=== PATIENT | female | born 1970 | race Caucasian/White ===

== ENCOUNTER → 2019-04-28 07:51 | Outpatient (CLI) | payer OTHER, SELFPAY ==
--- NOTE | 2019-04-28 | DI.MRI.S_ITS ---
PROCEDURE: MR CERVICAL SPINE WO CON INDICATIONS: Paresthesia of skin TECHNIQUE: Noncontrast sagittal T1 spin echo and T2 fast spin echo, sagittal STIR, foraminal oblique sagittal T2 fast spin echo, and axial gradient echo or T2 fast spin echo through the cervical spine. Sagittal proton density images were also performed. COMPARISON: [facility], MR, MR HEAD/BRAIN WO/W CON, 04/28/2019, 8:36. FINDINGS: Image quality: Excellent. Alignment and Curvature: There is normal bony alignment. Bone Marrow: Marrow demonstrates normal overall signal. Spinal Cord: There are several T2 hyperintense white matter lesions seen. The most prominent of these can be seen on the left, centered at the C4 level. There is a faintly seen lesion seen on the left at the C6 level, as on series 5 image 28. An additional lesion can be faintly seen on the right at the T1 level. Visualized spinal cord has normal size. No cerebellar tonsillar herniation. Paraspinous Soft Tissues: No paravertebral masses. Prevertebral soft tissues are normal in thickness. C2-C3: Normal appearance. C3-C4: Normal appearance. C4-C5: Normal appearance. C5-C6: Normal appearance. C6-C7: Normal appearance. C7-T1: Normal appearance. IMPRESSION: Several T2 hyperintense white matter lesions are seen, which are consistent with multiple sclerosis. No significant degenerative change is seen. Dictated by: Davey Pillai M.D. on 04/28/2019 at 9:53 Approved by: Davey Pillai M.D. on 04/28/2019 at 9:57
--- NOTE | 2019-04-28 | DI.MRI.S_ITS ---
PROCEDURE: MR HEAD/BRAIN WO/W CON INDICATIONS: Paresthesia of skin TECHNIQUE: Noncontrast sagittal and axial FLAIR, axial and coronal T2 fast spin echo, axial VIBE, axial gradient echo, axial diffusion and ADC through the brain. After the administration of contrast, axial and coronal VIBE with fat saturation through the brain. COMPARISON: [facility], MR, MR CERVICAL SPINE WO CON, 04/28/2019, 8:13. (No prior brain MRI examinations are available for review at the time of this dictation.) FINDINGS: Image quality: Excellent. CSF spaces: Ventricles are normal in size and shape. Basal cisterns are patent. No extra-axial fluid collections. Brain: There are several areas of abnormal T2 hyperintense white matter within the periventricular and deep white matter. The juxtacortical white matter is also involved. Several of the periventricular lesions demonstrate a perpendicular orientation to the lateral ventricles. There is involvement of the corpus callosum seen. Mild involvement of the brigid can be seen, as on series 5 image 13. A cerebellar lesion can be seen, as on series 5 image 15. An additional potential right cerebellar lesion can be seen, as on series 7 image 15. The white matter lesions do not enhance. No intracranial bleeds or mass effects. Kaufman-white matter interface appears intact. No abnormal intracranial enhancement. Diffusion weighted images show no acute ischemic insults. Brainstem appears normal. Normal intravascular flow voids are present. Skull and face: Calvarial marrow signal is normal. Orbits appear normal. Sinuses: Sinuses and mastoids are clear. IMPRESSION: Multiple white matter lesions are seen, with an imaging appearance that is highly concerning for multiple sclerosis. No prior brain MRIs are available for review at the time of this dictation. If prior brain MRIs are presented for correlation, comparison will be made and an addendum issued to this report. No abnormal enhancement can be seen. No findings of acute or subacute infarction can be seen. Dictated by: Davey Pillai M.D. on 04/28/2019 at 9:49 Approved by: Davey Pillai M.D. on 04/28/2019 at 9:53
== END ==
PROVIDERS: PCP Physician Assistant; Visit Provider Physician Assistant
DX: R20.2 Paresthesia of skin (principal)
CPT/HCPCS: 70553; 72141

== ENCOUNTER → 2019-10-31 16:31 | Outpatient (CLI) | payer OTHER, SELFPAY ==
--- NOTE | 2019-10-31 16:36 | DI.MRI.S_ITS ---
PROCEDURE: MR THORACIC SPINE WO/W CON INDICATIONS: MULTIPLE SCLEROSIS TECHNIQUE: Noncontrast sagittal T1 spin echo and T2 fast spin echo, sagittal STIR, axial T1 and T2 fast spin echo through the thoracic spine. After the administration of contrast, axial and sagittal T1 spin echo with fat saturation through the thoracic spine. COMPARISON: None. FINDINGS: Image quality: Excellent. Alignment and curvature: There is normal bony alignment. Marrow: Marrow is of normal overall signal. No acute vertebral body compression fractures. Spinal cord: Visualized spinal cord is of normal signal and size, without abnormal enhancement. Paraspinous soft tissues: No paravertebral masses or abnormal enhancement. Miscellaneous: Central canal and foramina appear widely patent at all scanned levels. IMPRESSION: Through the low cervical and visualized thoracic spine extending into the upper lumbar spine no intrinsic lesion within the spinal cord is found. The contrast-enhanced portion of the study shows no evidence of cord inflammation. The imaging also shows no degenerative change impinging on the cord or nerve roots. Overall, normal for age. Dictated by: Carter Caraballo M.D. on 11/03/2019 at 8:24 Approved by: Carter Caraballo M.D. on 11/03/2019 at 8:29
== END ==
PROVIDERS: PCP Physician Assistant; Referring Provider Psychiatry & Neurology Neurology; Visit Provider Psychiatry & Neurology Neurology
DX: G35 Multiple sclerosis (principal)
CPT/HCPCS: 72157; A9579

== ENCOUNTER → 2020-06-22 12:41 | Outpatient (CLI) | payer OTHER, SELFPAY ==
--- NOTE | 2020-06-22 12:45 | DI.MRI.S_ITS ---
PROCEDURE: MR THORACIC SPINE WO/W CON INDICATIONS: MULTIPLE SCLEROSIS TECHNIQUE: Noncontrast sagittal T1 spin echo and T2 fast spin echo, sagittal STIR, post-Gadolinium axial T1 spin echo with fat saturation through the thoracic and lumbar spines, with additional T2 fast spin echo and post-contrast axial T1 spin echo with fat saturation sequences acquired through levels of suspected cord compression. COMPARISON: [facility], , MR THORACIC SPINE WO/W CON, 10/31/2019, 17:01. FINDINGS: Image quality: Excellent. Bones: Normal thoracic vertebral body height and alignment. No suspicious focal marrow signal abnormality or bone marrow edema. No abnormal enhancement of the osseous vertebral column. No spinal canal or neural foraminal stenosis. Spinal cord: Visualized spinal cord is normal in size and signal. There is no T2 hyperintense lesion to indicate a demyelinating plaque. No abnormal intradural enhancement. Normal position of the conus. Paraspinous soft tissues: No paravertebral masses. IMPRESSION: No evidence of demyelinating disease in the thoracic spine. No significant change from comparison study. Dictated by: Miky Agrawal M.D. on 06/22/2020 at 14:34 Approved by: Miky Agrawal M.D. on 06/22/2020 at 14:38
--- NOTE | 2020-06-22 12:45 | DI.MRI.S_ITS ---
PROCEDURE: MR CERVICAL SPINE WO/W CON INDICATIONS: MULTIPLE SCLEROSIS TECHNIQUE: Noncontrast sagittal T1 spin echo and T2 fast spin echo, sagittal STIR, sagittal PD fast spin echo, foraminal oblique sagittal T2 fast spin echo, axial gradient echo or T2 fast spin echo through the cervical spine. After the administration of contrast, sagittal and axial T1 spin echo with fat saturation through the cervical spine. COMPARISON: [facility], MR, MR CERVICAL SPINE WO CON, 04/28/2019, 8:13. [facility], MR, MR THORACIC SPINE WO/W CON, 06/22/2020, 12:57. [facility], MR, MR HEAD/BRAIN WO/W CON, 06/22/2020, 12:57. FINDINGS: Image quality: Excellent. Alignment and curvature: There is normal bony alignment. Marrow: Marrow demonstrates normal overall signal. Spinal cord: On the left at the C4 level, there is again seen a focal white matter lesion, as on series 6, image 22. An additional faintly seen white matter lesion can be seen on the left, which is centered at the C6-C7 level, as on series 6, image 31. These lesions are not significantly changed over time. No new lesions are seen. Visualized spinal cord is normal in size. No suspicious intramedullary enhancement. No cerebellar tonsillar herniation. Paraspinous soft tissues: No paravertebral masses or suspicious enhancement. C2-C3: Normal appearance. C3-C4: Normal appearance. C4-C5: Normal appearance. C5-C6: Normal appearance. C6-C7: Normal appearance. C7-T1: Normal appearance. IMPRESSION: Stable T2 hyperintense white matter lesions are seen, which are not significantly changed compared to the prior examination. There are consistent with the given clinical history of multiple sclerosis. No abnormal enhancement can be seen. No significant cervical spine degenerative change can be seen. Dictated by: Davey Pillai M.D. on 06/22/2020 at 14:38 Approved by: Davey Pillai M.D. on 06/22/2020 at 14:41
--- NOTE | 2020-06-22 12:45 | DI.MRI.S_ITS ---
PROCEDURE: MR HEAD/BRAIN WO/W CON INDICATIONS: MULTIPLE SCLEROSIS TECHNIQUE: Noncontrast sagittal and axial FLAIR, axial and coronal T2 fast spin echo, axial VIBE, axial gradient echo, axial diffusion and ADC through the brain. After the administration of contrast, axial and coronal VIBE with fat saturation through the brain. COMPARISON: [facility], , MR HEAD/BRAIN WO/W CON, 04/28/2019, 8:36. FINDINGS: Image quality: Excellent. CSF spaces: Ventricles are normal in size and shape. Basal cisterns are patent. No extra-axial fluid collections. Brain: No intracranial bleeds or mass effects. Kaufman-white matter interface appears intact. No suspicious white matter lesions. No abnormal intracranial enhancement. Diffusion weighted images show no acute ischemic insults. The pattern of periventricular and centripetally oriented corpus callosum deep white matter lesions is stable over time, and no new lesion is identified. Brainstem appears normal. Normal intravascular flow voids are present. Skull and face: Calvarial marrow signal is normal. Orbits appear normal. Sinuses: Sinuses and mastoids are clear. IMPRESSION: Stable appearing multifocal bilateral periventricular and centripetally oriented corpus callosum white matter lesions consistent with underlying multiple sclerosis but free of interval worsening, contrast enhancement, or mass effect. No change from 04/28/19 similar MRI. Dictated by: Carter Caraballo M.D. on 06/22/2020 at 14:35 Approved by: Carter Caraballo M.D. on 06/22/2020 at 14:43
== END ==
PROVIDERS: PCP General Practice; Referring Provider Psychiatry & Neurology Neurology; Visit Provider Psychiatry & Neurology Neurology
DX: G35 Multiple sclerosis (principal)
CPT/HCPCS: 70553; 72156; 72157; A9579

== ENCOUNTER → 2020-11-08 12:35 | Outpatient (CLI) | payer BC, OTHER, SELFPAY ==
--- NOTE | 2020-11-08 12:42 | DI.US.S_ITS ---
PROCEDURE: US RENAL COMPLETE INDICATIONS: NEUROGENIC BLADDER TECHNIQUE: Real-time scanning was performed of the kidneys and bladder, with image documentation. COMPARISON: None. FINDINGS: Kidneys: Kidneys are normal in size. Right kidney measures 11.6 cm long; left kidney measures 11.6 cm long. Right renal cortical thickness is 1.6 cm; left renal cortical thickness is 1.5 cm. Renal cortical echotexture is normal. No hydronephrosis or nephrolithiasis. No suspicious solid mass lesions. Bladder: Pre-void bladder volume is 697 mL. Post-void residual is 49 mL. Pre-void images demonstrate no intraluminal masses or stones. On pre-void images, bilateral ureteral jets are noted with color Doppler interrogation. (Of note, ureteral jets may not be detectable in up to 25% of cases due to insufficient differences in specific gravity between ureteral and bladder urine). Miscellaneous: No free pelvic fluid. IMPRESSION: 1. Normal appearing bilateral kidneys. 2. No bladder wall abnormality is seen. Small amount of postvoid residual. Dictated by: Jude Maria M.D. on 11/08/2020 at 13:54 Approved by: Jude Maria M.D. on 11/08/2020 at 13:55
== END ==
PROVIDERS: PCP General Practice; Referring Provider Urology; Visit Provider Urology
DX: N31.9 Neuromuscular dysfunction of bladder, unspecified (principal)
CPT/HCPCS: 76770

== ENCOUNTER → 2021-07-08 15:13 | Outpatient (CLI) | payer BC, OTHER, SELFPAY ==
--- NOTE | 2021-07-08 | DI.MRI.S_ITS ---
PROCEDURE: MR CERVICAL SPINE WO/W CON INDICATIONS: Multiple sclerosis TECHNIQUE: Noncontrast sagittal T1 spin echo and T2 fast spin echo, sagittal STIR, sagittal PD fast spin echo, foraminal oblique sagittal T2 fast spin echo, axial gradient echo or T2 fast spin echo through the cervical spine. After the administration of contrast, sagittal and axial T1 spin echo with fat saturation through the cervical spine. COMPARISON: [facility], MR, MR CERVICAL SPINE WO CON, 04/28/2019, 8:13. [facility], MR, MR CERVICAL SPINE WO/W CON, 06/22/2020, 12:57. [facility], MR, MR HEAD/BRAIN WO/W CON, 07/08/2021, 15:35. FINDINGS: Image quality: Diagnostic, with note made of motion artifact. Alignment and curvature: There is normal bony alignment. Marrow: Marrow demonstrates normal overall signal. Spinal cord: Spinal cord white matter lesions are seen, including on the left at the C4 level, as on series 4, image 22. The previously described lesion on the left at the C6-C7 level is not well seen on the current study. No new lesions are seen. No abnormal enhancement is seen. Visualized spinal cord is normal in size. No cerebellar tonsillar herniation. Paraspinous soft tissues: No paravertebral masses or suspicious enhancement. No significant cervical spine degenerative change can be seen. IMPRESSION: A stable cervical cord white matter lesion can be seen on the left at the C4 level. The previously seen lesion at C6-C7 is not definitely seen on the current images. No new lesions are seen. No abnormal enhancement is seen. Dictated by: Davey Pillai M.D. on 07/08/2021 at 16:32 Approved by: Davey Pillai M.D. on 07/08/2021 at 16:35
--- NOTE | 2021-07-08 | DI.MRI.S_ITS ---
PROCEDURE: MR HEAD/BRAIN WO/W CON INDICATIONS: Multiple sclerosis TECHNIQUE: Noncontrast sagittal and axial FLAIR, axial and coronal T2 fast spin echo, axial VIBE, axial gradient echo, axial diffusion and ADC through the brain. After the administration of contrast, axial and coronal VIBE with fat saturation through the brain. COMPARISON: [facility], MR, MR HEAD/BRAIN WO/W CON, 04/28/2019, 8:36. [facility], MR, MR CERVICAL SPINE WO/W CON, 07/08/2021, 15:35. [facility], MR, MR HEAD/BRAIN WO/W CON, 06/22/2020, 12:57. FINDINGS: Image quality: Excellent. CSF spaces: Ventricles are normal in size and shape. Basal cisterns are patent. No extra-axial fluid collections. Brain: There are several foci of abnormal T2 weighted hyperintensity seen, including several juxtacortical lesions. Periventricular deep white matter lesions are seen. A few of the periventricular lesions demonstrate a perpendicular orientation to the lateral ventricles. A few faintly seen brigid lesions can be seen. Several of the larger lesions demonstrate low T1 weighted signal. Compared to 2019, the burden of white matter lesions is similar. No intracranial bleeds or mass effects. Kaufman-white matter interface appears intact. No abnormal intracranial enhancement. Diffusion weighted images show no acute ischemic insults. Brainstem appears normal. Normal intravascular flow voids are present. Skull and face: Calvarial marrow signal is normal. Orbits appear normal. Sinuses: Only there is a mucous retention cyst seen within the right maxillary sinus. Sinuses and mastoids are otherwise relative clear. IMPRESSION: Several T2 hyperintense white matter lesions are seen, which are consistent with the given clinical history of multiple sclerosis. No significant progression can be seen compared to the 2019 examination. No abnormal enhancement is seen. Dictated by: Davey Pillai M.D. on 07/08/2021 at 16:29 Approved by: Davey Pillai M.D. on 07/08/2021 at 16:32
== END ==
PROVIDERS: PCP General Practice; Referring Provider Psychiatry & Neurology Neurology; Visit Provider Psychiatry & Neurology Neurology
DX: G35 Multiple sclerosis (principal)
CPT/HCPCS: 70553; 72156; A9579

== ENCOUNTER 2021-12-02 14:08 | Emergency (ER) | payer BC, OTHER, SELFPAY ==
[2021-12-02 14:15] VITALS: BP 182/122; PULSE 117; RESP 17; TEMP 36.6; O2SAT 99; BMI 32.2
--- NOTE | 2021-12-02 14:30 | ED_ITS ---
HPI - General Adult General Chief complaint: Hypertension Stated complaint: High BP 187/116 hr110 Time Seen by Provider: 12/02/21 14:21 Source: patient Mode of arrival: Ambulatory History of Present Illness HPI narrative: 51-year-old female nonsmoker with history of high blood pressure and MS presents with family in the chief complaint of elevated blood pressure and palpitations. She has been on lisinopril 10 mg for quite some time and due to rising blood pressure she contacted her primary care provider who increased her lisinopril to 20 mg about 1 week ago. She has had no change in her blood pressure since. She denies headache, blurred vision, chest pain or shortness of breath. She has no abdominal pain or nausea or vomiting. She denies any other change in medications or diet. She has no recent long distance travel or history of blood clot. Related Data Home Medications Medication Instructions Recorded Confirmed albuterol sulfate 90 mcg/actuation INHALATION 12/02/21 aerosol inhaler (ProAir HFA) amitriptyline 100 mg tablet 100 mg PO DAILY 12/02/21 12/02/21 duloxetine 60 mg capsule,delayed 60 mg PO DAILY 12/02/21 12/02/21 release lisinopril 20 mg tablet 20 mg PO DAILY 12/02/21 12/02/21 tolterodine 4 mg capsule,extended 4 mg PO DAILY 12/02/21 12/02/21 release 24 hr Previous Rx's Medication Instructions Recorded amlodipine 5 mg tablet 5 mg PO DAILY #30 tab 12/02/21 Allergies Allergy/AdvReac Type Severity Reaction Status Date / Time Penicillins Allergy Mild RASH, N/V Verified 12/02/21 14:18 Sulfa (Sulfonamide Allergy Mild RASH, N/V Verified 12/02/21 14:18 Antibiotics) adhesive Allergy Unknown ALLERGIC Verified 12/02/21 14:18 TO TAPE Review of Systems Review of Systems Narrative: GENERAL: Denies chills, fatigue, malaise, fever, sweats. HEENT: Denies sinus pain, ear pain, sore throat, difficulty swallowing, dizziness. RESPIRATORY: Denies dyspnea, cough, wheezing, hemoptysis, sputum. CARDIOVASCULAR: See HPI GASTROINTESTINAL: Denies nausea, vomiting, abdominal pain, diarrhea, constipation, melena. : Denies dysuria, frequency, incontinence, hematuria, urinary retention. MUSCULOSKELETAL: denies weakness, joint pain, or bony pain SKIN: Denies rash, skin lesions, or other NEUROLOGIC: Denies weakness, headache, numbness, change in speech, confusion, seizures, incoordination. PSYCHIATRIC: No concerning psychosocial issues. 12 point review of systems is negative except for those stated above Patient History Medical History Hypertension Surgical History History of third molar tooth extraction Status post surgery (01/01/15) Social History Smoking Status: Never smoker Smoking Status: Never smoker alcohol intake frequency: other Substance Use Type: does not use Exam Narrative Exam Narrative: GENERAL: [51] year old patient appears stated age. Well-developed patient, in mild distress. HEAD: Atraumatic. Normocephalic. EYES: Pupils equal round and reactive. Extraocular motions intact. No scleral icterus. No injection or drainage. ENT: Nose without bleeding, purulent drainage. Throat without erythema, tonsillar hypertrophy or exudate. Airway patent. NECK: Trachea midline. Non tender CARDIOVASCULAR: Tachycardic but regular rhythm without murmurs, gallops, or rubs. RESPIRATORY: Clear to auscultation. Breath sounds equal bilaterally. No wheezes, rales, or rhonchi. GASTROINTESTINAL: Abdomen soft, non-tender, nondistended. EXTREMITIES: No edema or joint tenderness. BACK: Nontender without deformity or crepitance. No flank tenderness. NEURO: AOx3. SKIN: No rash or erythema of visible areas Initial Vital Signs Initial Vital Signs: Vital Signs Temperature 98 F 12/02/21 14:15 Pulse Rate 117 H 12/02/21 14:15 Respiratory Rate 17 12/02/21 14:15 Blood Pressure 182/122 H 12/02/21 14:15 Pulse Oximetry 99 12/02/21 14:15 Course Orders Ordered: ED Orders 12/02/21 14:21 EKG-12 Lead Stat 12/02/21 14:35 XR chest 1V Stat 12/02/21 14:45 Complete Blood Count AUTO DIFF Stat Comprehensive Metabolic Panel Stat D Dimer Stat Lipase Stat NT-proBNP (BNP-Adult 18+) Stat Troponin & CK Cardiac Panel Stat Discontinued Medications Amlodipine Besylate (Amlodipine 5 Mg Tablet) 5 mg PO NOW ONE Stop: 12/02/21 15:59 Last Admin: 12/02/21 16:10 Dose: 5 mg Documented by: ATAYLOR Sodium Chloride (Normal Saline 0.9%) 1,000 mls @ 150 mls/hr IV CONT ROSALEE Last Admin: 12/02/21 16:30 Dose: Not Given Documented by: ATAYLOR Sodium Chloride (Normal Saline 0.9%) 1,000 mls @ 1,000 mls/hr IV BOLUS ONE Stop: 12/02/21 16:57 Last Infusion: 12/02/21 17:02 Dose: 0 mls/hr Documented by: Admin: 12/02/21 16:11 Dose: 1,000 mls/hr Documented by: NACHOOR Vital Signs Vital signs: Vital Signs - 8 hr 12/02/21 14:15 12/02/21 15:00 12/02/21 15:30 Temperature 98 F Pulse Rate 117 H 101 H 98 H Respiratory Rate 17 18 20 Blood Pressure 182/122 H 165/92 H 160/92 H Pulse Oximetry 99 99 97 12/02/21 16:00 12/02/21 16:30 12/02/21 17:00 Temperature Pulse Rate 105 H 91 H 94 H Respiratory Rate 22 21 21 Blood Pressure 157/96 H 169/90 H 158/92 H Pulse Oximetry 99 98 99 Medical Decision Making Lab Data Result diagrams: 12/02/21 14:45 12/02/21 14:45 Labs: Lab Results 12/02/21 12/02/21 12/02/21 Range/Units 14:45 14:45 14:45 WBC 7.9 (4.5-11.0) X10^3/uL RBC 4.47 (4.0-5.2) X10^6/uL Hgb 13.3 (12.0-16.0) g/dL Hct 38.7 (36-46) % MCV 86.6 (80-100) fL MCH 29.8 (26-34) PG MCHC 34.4 (30-36) % RDW 13.4 (11.6-14.8) % Plt Count 310 (150-400) X10^3/uL Neut % (Auto) 70.0 (50-75) % Lymph % (Auto) 17.6 L (25-40) % [place] % (Auto) 6.7 (3-14) % Eos % (Auto) 5.3 H (2-4) % Baso % (Auto) 0.4 (0-2) % Neut # (Auto) 5500 (2704-3293) /uL Lymph # (Auto) 1400 (8532-3720) /uL [place] # (Auto) 500 (0-900) /uL Eos # (Auto) 400 (0-450) /uL Baso # (Auto) 0 (0-100) /uL D-Dimer (<230) ng/mL Sodium 140 (137-145) mmol/L Potassium 4.5 (3.4-5.1) mmol/L Chloride 106 (98-107) mmol/L Carbon Dioxide 25 (22-32) mmol/L BUN 14 (7-17) mg/dL Creatinine 0.72 (0.52-1.04) mg/dL Estimated GFR > 60.0 (>60) mL/min BUN/Creatinine Ratio 19.4 (6-22) Glucose 105 H (70-100) mg/dL Calcium 9.4 (8.4-10.2) mg/dL Total Bilirubin 0.5 (0.2-1.3) mg/dL AST 36 (14-36) IU/L ALT 32 (<35) IU/L Alkaline Phosphatase 86 (38-126) U/L Total Creatine Kinase 49 (30-135) U/L CK-MB (CK-2) TNP CK-MB (CK-2) Rel Index TNP Troponin I < 0.012 (0.01-0.034) ng/mL NT-Pro-B Natriuret Pep 26 (<125) pg/mL Total Protein 8.7 H (6.3-8.2) g/dL Albumin 4.8 (3.5-5.0) g/dL Globulin 3.9 (1.7-4.1) g/dL Albumin/Globulin Ratio 1.2 (1.0-2.8) Lipase 199 (23-300) U/L 12/02/21 Range/Units 14:45 WBC (4.5-11.0) X10^3/uL RBC (4.0-5.2) X10^6/uL Hgb (12.0-16.0) g/dL Hct (36-46) % MCV (80-100) fL MCH (26-34) PG MCHC (30-36) % RDW (11.6-14.8) % Plt Count (150-400) X10^3/uL Neut % (Auto) (50-75) % Lymph % (Auto) (25-40) % [place] % (Auto) (3-14) % Eos % (Auto) (2-4) % Baso % (Auto) (0-2) % Neut # (Auto) (7011-6254) /uL Lymph # (Auto) (1131-9564) /uL [place] # (Auto) (0-900) /uL Eos # (Auto) (0-450) /uL Baso # (Auto) (0-100) /uL D-Dimer < 200 (<230) ng/mL Sodium (137-145) mmol/L Potassium (3.4-5.1) mmol/L Chloride (98-107) mmol/L Carbon Dioxide (22-32) mmol/L BUN (7-17) mg/dL Creatinine (0.52-1.04) mg/dL Estimated GFR (>60) mL/min BUN/Creatinine Ratio (6-22) Glucose (70-100) mg/dL Calcium (8.4-10.2) mg/dL Total Bilirubin (0.2-1.3) mg/dL AST (14-36) IU/L ALT (<35) IU/L Alkaline Phosphatase (38-126) U/L Total Creatine Kinase (30-135) U/L CK-MB (CK-2) CK-MB (CK-2) Rel Index Troponin I (0.01-0.034) ng/mL NT-Pro-B Natriuret Pep (<125) pg/mL Total Protein (6.3-8.2) g/dL Albumin (3.5-5.0) g/dL Globulin (1.7-4.1) g/dL Albumin/Globulin Ratio (1.0-2.8) Lipase (23-300) U/L ECG Data Interpretation: Sinus tachycardia with rate of 104. No signs of ectopy or ischemia, no ST elevations or depressions, no significant T-wave abnormalities. MN interval 172, QRS 92, QTC 470 MDM Narrative Medical decision making narrative: patient presents with asymptomatic HTN, labs are reassuring and vitals have improve after initiation of amlodipine. Heart rate improved after fluids, PE considered but D-dimer is negative, no advanced imaging indicated. Importance of follow-up and return precautions discussed at length. Questions answered to her apparent satisfaction Discharge Plan Departure Patient Disposition: Home Clinical Impression: Hypertension Instructions: DI for High Blood Pressure Activity Restrictions/Additional Instructions: *You have been diagnosed with [hypertension. As we discussed your history and physical exam are very reassuring. *What to do: *Please continue to take your regular medications as directed. [x ] New medication prescriptions sent to your pharmacy: [[facility]– [place][Note 2] ] [ ] New medication written as a paper prescription [ ] No new medications given *Please follow up with your primary care provider in 2-3 days, call for an appointment. Let them know you were seen in the Emergency Department and that we ask that you be seen in follow up. We will electronically transmit a record of today's note if your PCP is in our system *If you do not have a primary care provider please contact the [facility] Resource line at [phone]. They will ask some questions about your medical history and help get you set up with a doctor in the community. *Return to Emergency Department if you should have any new, worsening or concerning symptoms, such as [fever greater than 101 F, shaking chills, worsening pain, persistent vomiting or other bothersome symptoms] Prescriptions: New amlodipine 5 mg tablet 5 mg PO DAILY Qty: 30 0RF No Action tolterodine 4 mg capsule,extended release 24hr 4 mg PO DAILY 0RF lisinopril 20 mg tablet 20 mg PO DAILY 0RF albuterol sulfate [ProAir HFA] 90 mcg/actuation HFA aerosol inhaler INHALATION 0RF amitriptyline 100 mg tablet 100 mg PO DAILY 0RF duloxetine 60 mg capsule,delayed release(DR/EC) 60 mg PO DAILY 0RF Referrals: Armin Johnson MD [Primary Care Provider] -
--- NOTE | 2021-12-02 14:35 | DI.RAD.S_ITS ---
PROCEDURE: XR CHEST 1V INDICATIONS: chest pressure TECHNIQUE: One view of the chest was acquired. COMPARISON: [facility], , CHEST 1 VIEW, 07/04/2017, 20:13. FINDINGS: Surgical changes and devices: None. Lungs and pleura: Lungs are clear. No pleural effusions or pneumothorax. Mediastinum: Mediastinal contours appear normal. Heart size is normal. Bones and chest wall: No suspicious bony lesions. Overlying soft tissues appear unremarkable. IMPRESSION: No acute cardiopulmonary abnormality. Dictated by: Adrian Jin M.D. on 12/02/2021 at 15:30 Approved by: Adrian Jin M.D. on 12/02/2021 at 15:32
[2021-12-02 15:00] VITALS: BP 165/92; PULSE 101; RESP 18; O2SAT 99
[2021-12-02 15:13] LABS: Add Manual Diff / Slide Review NO; Basophils Absolute Auto 0 /uL (0-100); Basophils Percent Auto 0.4 % (0-2); Eosinophils Absolute Auto 400 /uL (0-450); Eosinophils Percent Auto 5.3 % (2-4); Hematocrit 38.7 % (36-46); Hemoglobin 13.3 g/dL (12.0-16.0); Lymphocytes Absolute Auto 1400 /uL (1100-4500); Lymphocytes Percent Auto 17.6 % (25-40); Mean Corpuscular HGB Conc 34.4 % (30-36); Mean Corpuscular Hemoglobin 29.8 PG (26-34); Mean Corpuscular Volume 86.6 fL (80-100); Monocytes Absolute Auto 500 /uL (0-900); Monocytes Percent Auto 6.7 % (3-14); Neutrophils Absolute Auto 5500 /uL (1500-7000); Platelet Count 310 X10^3/uL (150-400); Red Blood Cell Count 4.47 X10^6/uL (4.0-5.2); Red Cell Distribution Width 13.4 % (11.6-14.8); White Blood Cell Count 7.9 X10^3/uL (4.5-11.0)
[2021-12-02 15:27] LABS: D Dimer < 200 ng/mL (<230)
[2021-12-02 15:30] VITALS: BP 160/92; PULSE 98; RESP 20; O2SAT 97
[2021-12-02 15:36] LABS: Alanine Aminotransferase 32 IU/L (<35); Albumin 4.8 g/dL (3.5-5.0); Albumin Globulin Ratio 1.2 (1.0-2.8); Alkaline Phosphatase 86 U/L (38-126); Aspartate Aminotransferase 36 IU/L (14-36); BUN Creatinine Ratio 19.4 (6-22); Bilirubin Total 0.5 mg/dL (0.2-1.3); Blood Urea Nitrogen 14 mg/dL (7-17); Calcium 9.4 mg/dL (8.4-10.2); Carbon Dioxide 25 mmol/L (22-32); Chloride 106 mmol/L (98-107); Creatine Kinase 49 U/L (30-135); Estimated Glomerular Filt Rate > 60.0 mL/min (>60); Globulin 3.9 g/dL (1.7-4.1); Glucose 105 mg/dL (70-100); HEMOLYSIS < 15 (0-50); Lipase 199 U/L (23-300); Potassium 4.5 mmol/L (3.4-5.1); Sodium 140 mmol/L (137-145); Total Protein 8.7 g/dL (6.3-8.2)
[2021-12-02 15:47] LABS: Troponin I < 0.012 ng/mL (0.01-0.034)
[2021-12-02 16:00] VITALS: BP 157/96; PULSE 105; RESP 22; O2SAT 99
[2021-12-02] MEDS: AMLODIPINE 5 MG TABLET PO (16:10)
[2021-12-02] MEDS: SODIUM CHLORIDE 0.9% 1,000 ML 1000 ML IV (16:11)
[2021-12-02 16:30] VITALS: BP 169/90; PULSE 91; RESP 21; O2SAT 98
[2021-12-02 16:38] LABS: NT-proBNP (BNP-Adult 18+) 26 pg/mL (<125)
[2021-12-02 17:00] VITALS: BP 158/92; PULSE 94; RESP 21; O2SAT 99
== END 2021-12-02 17:11 | disposition home or self-care (01) ==
PROVIDERS: Emergency Provider Emergency Medicine; PCP General Practice
DX: I10 Essential (primary) hypertension (principal); Z79.899 Other long term (current) drug therapy
CPT/HCPCS: 36415; 71045; 80053; 82550; 83690; 83880; 84484; 85025; 85379; 93005; 96360; 99284

== ENCOUNTER 2023-05-03 17:09 | Emergency (ER) | payer BC, OTHER, SELFPAY ==
[2023-05-03] VITALS (19 sets, daily range): BP systolic 139–202; BP diastolic 76–102; PULSE 75–119; RESP 10–26; TEMP 36.9; O2SAT 95–98; BMI 30.6
--- NOTE | 2023-05-03 17:30 | DI.RAD.S_ITS ---
PROCEDURE: XR CHEST 1V INDICATIONS: chest pain TECHNIQUE: One view of the chest was acquired. COMPARISON: [facility], CR, XR CHEST 1V, 12/02/2021, 14:55. FINDINGS: Surgical changes and devices: None. Lungs and pleura: Lungs are clear. No pleural effusions or pneumothorax. Mediastinum: Mediastinal contours appear normal. Heart size is normal. Bones and chest wall: No suspicious bony lesions. Overlying soft tissues appear unremarkable. IMPRESSION: No acute cardiopulmonary abnormalities or focal airspace disease. Dictated by: Darren Stewart M.D. on 05/03/2023 at 18:21 Approved by: Darren Stewart M.D. on 05/03/2023 at 18:22
[2023-05-03] MEDS: SODIUM CHLORIDE 0.9% 1,000 ML 1000 ML IV (17:48)
[2023-05-03 17:56] LABS: Add Manual Diff / Slide Review NO; Basophils Absolute Auto 0 /uL (0-100); Basophils Percent Auto 0.4 % (0-2); Eosinophils Absolute Auto 500 /uL (0-450); Eosinophils Percent Auto 5.1 % (2-4); Hematocrit 37.5 % (36-46); Hemoglobin 12.8 g/dL (12.0-16.0); Lymphocytes Absolute Auto 1500 /uL (1100-4500); Lymphocytes Percent Auto 15.1 % (25-40); Mean Corpuscular HGB Conc 34.1 % (30-36); Mean Corpuscular Hemoglobin 29.8 PG (26-34); Mean Corpuscular Volume 87.3 fL (80-100); Monocytes Absolute Auto 800 /uL (0-900); Monocytes Percent Auto 8.2 % (3-14); Neutrophils Absolute Auto 7100 /uL (1500-7000); Neutrophils Percent Auto 71.2 % (50-75); Platelet Count 297 X10^3/uL (150-400); Red Blood Cell Count 4.29 X10^6/uL (4.0-5.2); White Blood Cell Count 9.9 X10^3/uL (4.5-11.0)
[2023-05-03 17:59] LABS: INR 1.2 (0.9-1.3); Prothrombin Time 13.3 SECONDS (10.1-12.7)
[2023-05-03 18:02] LABS: PTT Partial Thromboplastin Tim 28 SECONDS (26-36)
--- NOTE | 2023-05-03 18:04 | PC.NURSE ---
Ambulated patient to bathroom for urine specimen. Pt denies dizziness, lightheaded, shortness of breath. Peed 900cc clear urine, specimen collected. Patient back in bed with daughter, son, and at bedside.
[2023-05-03 18:05] LABS: Alanine Aminotransferase 24 IU/L (<35); Albumin 4.3 g/dL (3.5-5.0); Albumin Globulin Ratio 1.2 (1.0-2.8); Alkaline Phosphatase 78 U/L (38-126); Aspartate Aminotransferase 33 IU/L (14-36); Bilirubin Total 0.5 mg/dL (0.2-1.3); Blood Urea Nitrogen 8 mg/dL (7-17); Calcium 9.2 mg/dL (8.4-10.2); Carbon Dioxide 21 mmol/L (22-32); Chloride 109 mmol/L (98-107); Creatine Kinase 44 U/L (30-135); Estimated Glomerular Filt Rate > 60 mL/min (>60); Globulin 3.5 g/dL (1.7-4.1); Glucose 157 mg/dL (70-100); HEMOLYSIS < 15 (0-50); Lipase 382 U/L (23-300); Magnesium 1.8 mg/dL (1.6-2.3); Potassium 3.3 mmol/L (3.4-5.1); Sodium 141 mmol/L (137-145); Total Protein 7.8 g/dL (6.3-8.2)
--- NOTE | 2023-05-03 18:13 | PC.NURSE ---
patient denies chest pain, but has mid back pain 5/10 that felt tight before calling 9-1-1 around 1500 today. She states after walking, peeing, and laying down in bed her back pain feels a little better.
[2023-05-03 18:16] LABS: Troponin I 0.018 ng/mL (0.01-0.034)
--- NOTE | 2023-05-03 21:00 | PC.NURSE ---
Patient states she is having 4/10 frontal headache. She does not take tylenol d/t a liver complication. Pt usually takes motrin. I consulted with provider, new orders in NOV.
[2023-05-03] MEDS: IBUPROFEN 400 MG TABLET 800 MG PO (21:11)
[2023-05-03 21:38] LABS: Troponin I 0.065 ng/mL (0.01-0.034)
--- NOTE | 2023-05-03 23:46 | ED_ITS ---
HPI - Arrhythmia/Palpitations General Chief Complaint: Arrhythmia/Palpitations Stated Complaint: Mid Back Pain Time Seen by Provider: 05/03/23 20:51 Source: patient and EMS Mode of arrival: EMS Limitations: no limitations History of Present Illness HPI narrative: This is a 52-year-old female with history of MS, hypertension who presents with complaint of palpitations and elevated heart rate sometimes going up to 125 when she exerts herself. She states today she would a hair appointment went to [facility]. She states she came home and was having what felt like a hot flash her heart rate go up to 113 she rested but was continuing to go up her blood pressure was 178. She felt sort of tingling in her face rechecked her heart rate on her watch was 130 with a blood pressure 204/180. Patient states when these episodes happened she gets sweaty her face gets red. It has been going on for at least a month to month and a half. She denies chest pain no shortness of breath no syncope or lightheadedness. Today she was little nauseated but that does not normally happened. She denies any vomiting. No dysuria urgency or frequency. No new swelling in extremities. She denies any new medication changes she does take medication for bladder control, Cymbalta, lisinopril, tolterodine, duloxetine, amitriptyline. She states she would a breast reduction 10 years ago. No other prior surgeries. States she has a list of allergies including penicillin, sulfa and adhesive. No tobacco, alcohol or illicit. No l talib distance travel, or other high-risk factors for clot. Patient ambulates and gets around regularly. She drove to [place] a year ago. She is accompanied by her . Related Data Home Medications Medication Instructions Recorded Confirmed albuterol sulfate 90 mcg/actuation inhalation 12/02/21 aerosol inhaler (ProAir HFA) amitriptyline 100 mg tablet 100 mg PO DAILY 12/02/21 12/02/21 duloxetine 60 mg capsule,delayed 60 mg PO DAILY 12/02/21 12/02/21 release lisinopril 20 mg tablet 20 mg PO DAILY 12/02/21 12/02/21 tolterodine 4 mg capsule,extended 4 mg PO DAILY 12/02/21 12/02/21 release 24 hr Previous Rx's Medication Instructions Recorded amlodipine 5 mg tablet 5 mg PO DAILY #30 tabs 12/02/21 Allergies Allergy/AdvReac Type Severity Reaction Status Date / Time Penicillins Allergy Mild RASH, N/V Verified 12/02/21 14:18 Sulfa (Sulfonamide Allergy Mild RASH, N/V Verified 12/02/21 14:18 Antibiotics) adhesive Allergy Unknown ALLERGIC Verified 12/02/21 14:18 TO TAPE Review of Systems Review of Systems ROS Unobtainable: All systems reviewed & are unremarkable except as noted in HPI and below Patient History Medical History Hypertension Surgical History History of third molar tooth extraction Status post surgery (01/01/15) Social History Smoking Status: Never smoker Smoking Status: Never smoker alcohol intake frequency: other Substance Use Type: does not use Exam Narrative Exam Narrative: GENERAL: Alert and oriented x three, mild distress. Patient does feel slightly warm to touch. HEENT: Head normocephalic, atraumatic, EOMI, pupils reactive, face symmetric, moist mucous membranes NECK: Supple, full range of motion CARDIOVASCULAR: Regular rate and rhythm without murmurs, rubs or gallops. No JVD. No swelling bilateral lower extremities. RESPIRATORY: Breath sounds equal bilaterally, no wheezes rales or rhonchi. No tachypnea. No accessory muscle use. Speaks in full sentences. ABDOMEN: Soft, nontender. Normoactive bowel sounds all 4 quadrants. No guarding or rebound, rigidity, no mass : No CVA tenderness EXTREMITIES: Normal range of motion, no clubbing or edema. Neurovascularly intact NEUROLOGICAL: Cranial nerves II through XII grossly intact. Moving all extremities. SKIN: Warm, dry, no petechiae, no rashes or lesions. Initial Vital Signs Initial Vital Signs: Vital Signs Pulse Rate 112 H 05/03/23 17:22 Pulse Oximetry 97 05/03/23 17:22 Course Orders Ordered: ED Orders 05/04/23 00:00 TSH [Thyroid Stimulating Hormone] Stat 05/04/23 00:09 CT angio chest PE protocol Stat 05/04/23 00:24 Trop I [Troponin I] Stat Discontinued Medications Aspirin (Aspirin 81 Mg Chew Tab) 324 mg PO NOW ONE Stop: 05/03/23 17:31 Last Admin: 05/03/23 17:48 Dose: Not Given Documented By: JACOB Diphenhydramine HCl (Diphenhydramine 50 Mg/Ml Vial) 50 mg IV NOW ONE Stop: 05/04/23 00:10 Last Admin: 05/04/23 00:15 Dose: 50 mg Documented By: MIHAI Sodium Chloride (Normal Saline 0.9%) 1,000 mls @ 1,000 mls/hr IV BOLUS ONE Stop: 05/03/23 18:45 Last Infusion: 05/03/23 18:15 Dose: 0 mls/hr Documented By: Admin: 05/03/23 17:48 Dose: 1,000 mls/hr Documented By: JACOB Sodium Chloride (Normal Saline 0.9%) 1,000 mls @ 150 mls/hr IV CONT ROSALEE Last Infusion: 05/04/23 01:52 Dose: 0 mls/hr Documented By: Admin: 05/04/23 00:32 Dose: 150 mls/hr Documented By: MIHAI Ibuprofen (Ibuprofen 400 Mg Tablet) 800 mg PO NOW ONE Stop: 05/03/23 20:52 Last Admin: 05/03/23 21:11 Dose: 800 mg Documented By: DINORA Methylprednisolone (Methylprednisolone 125 Mg/2 Ml Vial) 125 mg IV NOW ONE Stop: 05/04/23 00:10 Last Admin: 05/04/23 00:15 Dose: 125 mg Documented By: MIHAI Vital Signs Vital signs: Vital Signs - 8 hr 05/03/23 22:30 05/03/23 22:30 05/03/23 23:00 Temperature Pulse Rate 87 Respiratory Rate 20 Blood Pressure 151/85 H 139/76 Pulse Oximetry 96 Oxygen Delivery Method 05/03/23 23:00 05/03/23 23:30 05/03/23 23:30 Temperature Pulse Rate 78 75 Respiratory Rate 24 19 Blood Pressure 147/82 H Pulse Oximetry 97 95 Oxygen Delivery Method 05/04/23 00:00 05/04/23 00:00 05/04/23 00:30 Temperature 97.8 F Pulse Rate 84 Respiratory Rate 22 Blood Pressure 146/91 H Pulse Oximetry 95 Oxygen Delivery Method Room Air 05/04/23 00:44 05/04/23 01:00 05/04/23 01:30 Temperature Pulse Rate 90 80 72 Respiratory Rate 24 Blood Pressure Pulse Oximetry 92 95 96 Oxygen Delivery Method MDM - Arrhythmia/Palpitations Lab Data 05/03/23 17:35 05/03/23 17:35 Labs: Lab Results 05/03/23 05/03/23 05/03/23 Range/Units 17:35 17:35 17:35 WBC 9.9 (4.5-11.0) X10^3/uL RBC 4.29 (4.0-5.2) X10^6/uL Hgb 12.8 (12.0-16.0) g/dL Hct 37.5 (36-46) % MCV 87.3 (80-100) fL MCH 29.8 (26-34) PG MCHC 34.1 (30-36) % RDW 14.0 (11.6-14.8) % Plt Count 297 (150-400) X10^3/uL Neut % (Auto) 71.2 (50-75) % Lymph % (Auto) 15.1 L (25-40) % [place] % (Auto) 8.2 (3-14) % Eos % (Auto) 5.1 H (2-4) % Baso % (Auto) 0.4 (0-2) % Neut # (Auto) 7100 H (9567-4978) /uL Lymph # (Auto) 1500 (9073-3612) /uL [place] # (Auto) 800 (0-900) /uL Eos # (Auto) 500 H (0-450) /uL Baso # (Auto) 0 (0-100) /uL PT 13.3 H (10.1-12.7) SECONDS INR 1.2 (0.9-1.3) APTT 28 (26-36) SECONDS Sodium 141 (137-145) mmol/L Potassium 3.3 L (3.4-5.1) mmol/L Chloride 109 H (98-107) mmol/L Carbon Dioxide 21 L (22-32) mmol/L BUN 8 (7-17) mg/dL Creatinine 0.57 (0.52-1.04) mg/dL Estimated GFR > 60 (>60) mL/min BUN/Creatinine Ratio 14.0 (6-22) Glucose 157 H (70-100) mg/dL Calcium 9.2 (8.4-10.2) mg/dL Magnesium 1.8 (1.6-2.3) mg/dL Total Bilirubin 0.5 (0.2-1.3) mg/dL AST 33 (14-36) IU/L ALT 24 (<35) IU/L Alkaline Phosphatase 78 (38-126) U/L Total Creatine Kinase 44 (30-135) U/L Troponin I 0.018 (0.01-0.034) ng/mL NT-Pro-B Natriuret Pep (<125) pg/mL Total Protein 7.8 (6.3-8.2) g/dL Albumin 4.3 (3.5-5.0) g/dL Globulin 3.5 (1.7-4.1) g/dL Albumin/Globulin Ratio 1.2 (1.0-2.8) Lipase 382 H (23-300) U/L TSH (0.47-4.68) uIU/mL 05/03/23 05/03/23 05/03/23 Range/Units 17:35 17:35 20:58 WBC (4.5-11.0) X10^3/uL RBC (4.0-5.2) X10^6/uL Hgb (12.0-16.0) g/dL Hct (36-46) % MCV (80-100) fL MCH (26-34) PG MCHC (30-36) % RDW (11.6-14.8) % Plt Count (150-400) X10^3/uL Neut % (Auto) (50-75) % Lymph % (Auto) (25-40) % [place] % (Auto) (3-14) % Eos % (Auto) (2-4) % Baso % (Auto) (0-2) % Neut # (Auto) (0026-9807) /uL Lymph # (Auto) (1546-9286) /uL [place] # (Auto) (0-900) /uL Eos # (Auto) (0-450) /uL Baso # (Auto) (0-100) /uL PT (10.1-12.7) SECONDS INR (0.9-1.3) APTT (26-36) SECONDS Sodium (137-145) mmol/L Potassium (3.4-5.1) mmol/L Chloride (98-107) mmol/L Carbon Dioxide (22-32) mmol/L BUN (7-17) mg/dL Creatinine (0.52-1.04) mg/dL Estimated GFR (>60) mL/min BUN/Creatinine Ratio (6-22) Glucose (70-100) mg/dL Calcium (8.4-10.2) mg/dL Magnesium (1.6-2.3) mg/dL Total Bilirubin (0.2-1.3) mg/dL AST (14-36) IU/L ALT (<35) IU/L Alkaline Phosphatase (38-126) U/L Total Creatine Kinase (30-135) U/L Troponin I 0.065 H (0.01-0.034) ng/mL NT-Pro-B Natriuret Pep 32 (<125) pg/mL Total Protein (6.3-8.2) g/dL Albumin (3.5-5.0) g/dL Globulin (1.7-4.1) g/dL Albumin/Globulin Ratio (1.0-2.8) Lipase (23-300) U/L TSH 3.57 (0.47-4.68) uIU/mL 05/04/23 Range/Units 00:24 WBC (4.5-11.0) X10^3/uL RBC (4.0-5.2) X10^6/uL Hgb (12.0-16.0) g/dL Hct (36-46) % MCV (80-100) fL MCH (26-34) PG MCHC (30-36) % RDW (11.6-14.8) % Plt Count (150-400) X10^3/uL Neut % (Auto) (50-75) % Lymph % (Auto) (25-40) % [place] % (Auto) (3-14) % Eos % (Auto) (2-4) % Baso % (Auto) (0-2) % Neut # (Auto) (2452-8826) /uL Lymph # (Auto) (1999-4337) /uL [place] # (Auto) (0-900) /uL Eos # (Auto) (0-450) /uL Baso # (Auto) (0-100) /uL PT (10.1-12.7) SECONDS INR (0.9-1.3) APTT (26-36) SECONDS Sodium (137-145) mmol/L Potassium (3.4-5.1) mmol/L Chloride (98-107) mmol/L Carbon Dioxide (22-32) mmol/L BUN (7-17) mg/dL Creatinine (0.52-1.04) mg/dL Estimated GFR (>60) mL/min BUN/Creatinine Ratio (6-22) Glucose (70-100) mg/dL Calcium (8.4-10.2) mg/dL Magnesium (1.6-2.3) mg/dL Total Bilirubin (0.2-1.3) mg/dL AST (14-36) IU/L ALT (<35) IU/L Alkaline Phosphatase (38-126) U/L Total Creatine Kinase (30-135) U/L Troponin I 0.040 H (0.01-0.034) ng/mL NT-Pro-B Natriuret Pep (<125) pg/mL Total Protein (6.3-8.2) g/dL Albumin (3.5-5.0) g/dL Globulin (1.7-4.1) g/dL Albumin/Globulin Ratio (1.0-2.8) Lipase (23-300) U/L TSH (0.47-4.68) uIU/mL Imaging Data Chest x-ray: Radiologist's Impresson: Close Chest X-Ray (Signed) Darren Stewart - 05/03/23 Chest X-Ray (Signed) Adrian Jin - 12/02/21 Cervical Spine MRI (Signed) Davey Pillai - 07/08/21 Brain MRI (Signed) Eloisa Pillaie - 07/08/21 Renal Ultrasound (Signed) Jude Maria - 11/08/20 Thoracic Spine MRI (Signed) Miky Agrawal - 06/22/20 Cervical Spine MRI (Signed) Davey Pillai - 06/22/20 Brain MRI (Signed) Carter Caraballo - 06/22/20 Thoracic Spine MRI (Signed) Carter Caraballo - 10/31/19 Cervical Spine MRI (Signed) Davey Pillai - 04/28/19 Brain MRI (Signed) Davey Pillai - 04/28/19 Launch?Image [address] [address] XRay Report Signed Patient: Stephy Woodall MR#: [id number] : 1970 Acct:[id number] Age/Sex: 52 / F Date of Service: 05/03/23 Loc: ED Accession Number: [id number] ?? Procedure: XR chest 1V Ordering Provider: Benoit Alicia MD PROCEDURE:? XR CHEST 1V ? INDICATIONS:? chest pain ? TECHNIQUE:? One view of the chest was acquired.? ? COMPARISON:? [facility], CR, XR CHEST 1V, 12/02/2021, 14:55. ? FINDINGS:? ? Surgical changes and devices:? None.? ? Lungs and pleura:? Lungs are clear.? No pleural effusions or pneumothorax.? ? Mediastinum:? Mediastinal contours appear normal.? Heart size is normal.? ? Bones and chest wall:? No suspicious bony lesions.? Overlying soft tissues appear unremarkable.? ? ? IMPRESSION:? No acute cardiopulmonary abnormalities or focal airspace disease. ? Dictated by: Darren Stewart M.D. on 05/03/2023 at 18:21 ? ? Approved by: Darren Stewart M.D. on 05/03/2023 at 18:22?? CT scan - chest: Radiologist's Impresson: [place] [id number] CT Scan Report Signed Patient: Stephy Woodall MR#: [id number] : 1970 Acct:[id number] Age/Sex: 52 / F Date of Service: 05/04/23 Loc: ED Accession Number: [id number] ?? Procedure: CT angio chest PE protocol Ordering Provider: Mary Greene D.O. PROCEDURE:? CT ANGIO CHEST PE PROTOCOL ? INDICATIONS:? tachycardia, htn, hot flashes ? TECHNIQUE:? After the administration of intravenous contrast, 2 mm thick sections acquired from the pulmonary apices to the posterior costophrenic angles.? 3-dimensional maximum intensity projection (MIP) coronal and sagittal reformats were then acquired through the thorax.? For radiation dose reduction, the following was used:? automated exposure control, adjustment of mA and/or kV according to patient size.? ? COMPARISON:? None. ? FINDINGS:? Image quality:? Excellent.? ? Pulmonary arteries:? Pulmonary arteries are normal in size, and demonstrate no intraluminal filling defects to suggest central pulmonary embolism.? ? Lungs and pleura:? Lungs are clear.? No pleural effusions or pneumothorax.? Central and peripheral airways are patent.? Basilar predominant cystic lesions with smooth ruvalcaba.? 4 mm solid nodule, lateral right upper lobe (series 5, image 109). ? Mediastinum:? Heart size is normal, without pericardial effusion.? No mediastinal or hilar adenopathy.? Thoracic aorta is normal in caliber and enhancement.? Eso phagus is patulous, with small hiatal hernia.? ? Bones and chest wall:? No suspicious bony lesions.? Ribs and thoracic spine appear intact throughout.? Thyroid gland is unremarkable.? No axillary or supraclavicular adenopathy.? Dense bone lesion in the superior endplate T5, probably a bone island ? Abdomen:? Visualized upper abdominal solid organs appear normal in the early arterial phase of enhancement.? ? IMPRESSION:? No pulmonary embolus. ? Basilar predominant cystic lesions with smooth ruvalcaba.? These could be incidental, or be associated with pulmonary cystic disease such as lymphangioleiomyomatosis or Klri-Izdw-Sppb syndrome. ? Patulous esophagus, which can correlate with scleroderma. ? 4 mm solid nodule, lateral right upper lobe.? Consider 12 month follow-up if at high risk for developing lung cancer, per Fleischner Society guidelines. ? Dictated by: Leo Perez M.D. on 05/04/2023 at 1:01 ? ? Approved by: Leo Perez M.D. on 05/04/2023 at 1:08?? ECG Data Attestation: I personally reviewed and interpreted this ECG as follows: Prior ECG tracings: available for review Interpretation: Sinus tachycardia rate of 118 CO 168 QRS of 94 and QTC of 454. No acute ST e levation, some nonspecific change. Patient has prior from 12/02/[address] changes appreciated. EKG 2. Sinus rhythm rate of 90 6p are 182 QRS of 90 QTC of 480. No acute ST elevation depression noted. MDM Narrative Medical decision making narrative: 52-year-old female who comes in with complaint of tachycardia and hypertension intermittently with hot flashes. Patient states she thought she was just going through menopause but this evening was a little bit more intense than usual she checked her pressure was 200 systolic with a diastolic of 180 and a heart rate in the 130s. She states seems to be exertional but can sometimes happen without. She denies chest pain or pressure no shortness of breath no syncope she had some nausea this evening. She states very hot and flushed and will sometimes get sweaty. CBC showed no acute changes coags were negative CMP did show a potassium of 3.3. Troponin initially was 0.018 trended upwards 2.0 6 5. Chest x-ray was negative. Patient received aspirin, L of saline. Patient had TSH added on, 3rd troponin and EKG were obtained and CT angio although hypertension with tachycardia seems less likely. Patient does note that she is had some fullness to her thyroid for a long time she is had ultrasound and told she had some fluid there. She does note allergy with hives and vomiting to contrast dye and states she tolerates usually with pretreatment with Benadryl. Benadryl and Solu-Medrol were ordered. Patient tolerated CT angio without issue. No pulmonary embolism. Basilar predominance cystic lesions in the smooth ruvalcaba could be pulmonary cystic disease or Beverly angio leiomyomatosis. Patient also has nodule in the lung. Spoke with Dr. Goff, cardiology: Reviewed patient findings from today, no additional recommendations to add currently. Would recommend workup feels could breathe performed as an outpatient if necessary. Discussed with patient, I did offer observation overnight. She defers and would prefer to return home. We discussed recommendations follow up with Cardiology, primary care for Holter/ZIO patch and further workup. I also reviewed her findings from her imaging today. Discharge Plan Departure Patient Disposition: Home Clinical Impression: Tachycardia, Lung nodule Instructions: DI for Arrhythmias Activity Restrictions/Additional Instructions: Please follow up with primary care and/or Cardiology for further workup. Please call in the morning to set up follow up. You had some sinus tachycardia on your EKG today but no other clear arrhythmias, they will likely wish read follow up for Holter or ZIO patch to try to catch any other rhythm changes at home. Incidentally your imaging did show a lung nodule on the right upper lobe, it is recommended you have 12 month follow-up repeat imaging. Talk with your physician about scheduling this. There also a patulous esophagus and some basilar predominant cystic lesions in the smooth ruvalcaba of your lungs. Shared this information with your physician. Please return for new or recurrent symptoms, new chest pain, shortness of breath, passing out, sweatiness, swelling of your extremities, persistently fast heart rate or other new or concerning changes. Prescriptions: No Action tolterodine 4 mg capsule,extended release 24hr 4 mg PO DAILY lisinopril 20 mg tablet 20 mg PO DAILY albuterol sulfate [ProAir HFA] 90 mcg/actuation HFA aerosol inhaler INHALATION amitriptyline 100 mg tablet 100 mg PO DAILY duloxetine 60 mg capsule,delayed release(DR/EC) 60 mg PO DAILY amlodipine 5 mg tablet 5 mg PO DAILY Qty: 30 0RF Referrals: Armin Johnson MD [Primary Care Provider] - Esther Gallardo DO [Physician] - Stand Alone Forms: Patient Portal/API
[2023-05-04] VITALS: BP 146/91; PULSE 84; RESP 22; O2SAT 95
--- NOTE | 2023-05-04 00:09 | DI.CT.S_ITS ---
PROCEDURE: CT ANGIO CHEST PE PROTOCOL INDICATIONS: tachycardia, htn, hot flashes TECHNIQUE: After the administration of intravenous contrast, 2 mm thick sections acquired from the pulmonary apices to the posterior costophrenic angles. 3-dimensional maximum intensity projection (MIP) coronal and sagittal reformats were then acquired through the thorax. For radiation dose reduction, the following was used: automated exposure control, adjustment of mA and/or kV according to patient size. COMPARISON: None. FINDINGS: Image quality: Excellent. Pulmonary arteries: Pulmonary arteries are normal in size, and demonstrate no intraluminal filling defects to suggest central pulmonary embolism. Lungs and pleura: Lungs are clear. No pleural effusions or pneumothorax. Central and peripheral airways are patent. Basilar predominant cystic lesions with smooth ruvalcaba. 4 mm solid nodule, lateral right upper lobe (series 5, image 109). Mediastinum: Heart size is normal, without pericardial effusion. No mediastinal or hilar adenopathy. Thoracic aorta is normal in caliber and enhancement. Esophagus is patulous, with small hiatal hernia. Bones and chest wall: No suspicious bony lesions. Ribs and thoracic spine appear intact throughout. Thyroid gland is unremarkable. No axillary or supraclavicular adenopathy. Dense bone lesion in the superior endplate T5, probably a bone island Abdomen: Visualized upper abdominal solid organs appear normal in the early arterial phase of enhancement. IMPRESSION: No pulmonary embolus. Basilar predominant cystic lesions with smooth ruvalcaba. These could be incidental, or be associated with pulmonary cystic disease such as lymphangioleiomyomatosis or Dptg-Zcst-Qqij syndrome. Patulous esophagus, which can correlate with scleroderma. 4 mm solid nodule, lateral right upper lobe. Consider 12 month follow-up if at high risk for developing lung cancer, per Fleischner Society guidelines. Dictated by: Leo Perez M.D. on 05/04/2023 at 1:01 Approved by: Leo Perez M.D. on 05/04/2023 at 1:08
[2023-05-04 00:13] LABS: NT-proBNP (BNP-Adult 18+) 32 pg/mL (<125)
[2023-05-04] MEDS: diphenhydrAMINE 50 MG/ML VIAL IV (00:15)
[2023-05-04] MEDS: methylPREDNISolone 125 MG/2 ML VIAL IV (00:15)
[2023-05-04 00:30] VITALS: TEMP 36.6
[2023-05-04] MEDS: SODIUM CHLORIDE 0.9% 1,000 ML 150 ML IV (00:32)
[2023-05-04 00:44] VITALS: PULSE 90; O2SAT 92
[2023-05-04 01:00] VITALS: PULSE 80; RESP 24; O2SAT 95
[2023-05-04 01:12] LABS: Thyroid Stimulating Hormone 3.57 uIU/mL (0.47-4.68)
[2023-05-04 01:30] VITALS: PULSE 72; O2SAT 96
== END 2023-05-04 01:52 | disposition home or self-care (01) ==
PROVIDERS: Emergency Medicine; Emergency Provider Emergency Medicine; PCP General Practice
DX: R00.0 Tachycardia, unspecified (principal); R07.9 Chest pain, unspecified; R91.1 Solitary pulmonary nodule
CPT/HCPCS: 36415; 71045; 71275; 80053; 82550; 83690; 83735; 83880; 84443; 84484; 85025; 85610; 85730; 93005; 96361; 96374; 96375; 99284; 99285; J1200; J2930; Q9967

== ENCOUNTER 2024-06-08 16:22 | Emergency (ER) | payer BC, OTHER, SELFPAY ==
[2024-06-08] VITALS (9 sets, daily range): BP systolic 167–195; BP diastolic 96–122; PULSE 69–93; RESP 13–18; TEMP 36.6; O2SAT 95–99; BMI 29.2
--- NOTE | 2024-06-08 16:47 | DI.RAD.S_ITS ---
PROCEDURE: XR CHEST 1V INDICATIONS: chest pain TECHNIQUE: One view of the chest was acquired. COMPARISON: [facility], CR, XR CHEST 1V, 05/03/2023, 17:50. FINDINGS: Surgical changes and devices: None. Lungs and pleura: Lungs are clear. No pleural effusions or pneumothorax. Mediastinum: Mediastinal contours appear normal. Heart size is normal. Bones and chest wall: No suspicious bony lesions. Overlying soft tissues appear unremarkable. IMPRESSION: No acute cardiopulmonary abnormality is seen. Approved by: Salvador Briseno M.D. on 06/08/2024 at 16:09
--- NOTE | 2024-06-08 16:47 | EKG_ITS ---
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
[2024-06-08 17:16] LABS: Add Manual Diff / Slide Review NO; Basophils Absolute Auto 0 /uL (0-100); Basophils Percent Auto 0.7 % (0-2); Eosinophils Absolute Auto 800 /uL (0-450); Eosinophils Percent Auto 11.6 % (2-4); Hematocrit 40.1 % (36-46); Hemoglobin 13.8 g/dL (12.0-16.0); Lymphocytes Absolute Auto 1300 /uL (1100-4500); Lymphocytes Percent Auto 19.3 % (25-40); Mean Corpuscular HGB Conc 34.5 % (30-36); Mean Corpuscular Hemoglobin 31.6 PG (26-34); Mean Corpuscular Volume 91.7 fL (80-100); Monocytes Absolute Auto 600 /uL (0-900); Monocytes Percent Auto 9.5 % (3-14); Neutrophils Absolute Auto 4000 /uL (1500-7000); Neutrophils Percent Auto 58.9 % (50-75); Platelet Count 260 X10^3/uL (150-400); Red Blood Cell Count 4.38 X10^6/uL (4.0-5.2); Red Cell Distribution Width 13.5 % (11.6-14.8); White Blood Cell Count 6.7 X10^3/uL (4.5-11.0)
[2024-06-08 17:17] LABS: INR 1.2 (0.9-1.3); Prothrombin Time 13.2 SECONDS (9.4-12.5)
[2024-06-08 17:19] LABS: PTT Partial Thromboplastin Tim 34 SECONDS (25.1-36.5)
[2024-06-08 17:20] LABS: Alanine Aminotransferase 21 IU/L (<35); Albumin 4.7 g/dL (3.5-5.0); Albumin Globulin Ratio 1.3 (1.0-2.8); Alkaline Phosphatase 91 U/L (38-126); Aspartate Aminotransferase 28 IU/L (14-36); BUN Creatinine Ratio 17.4 (6-22); Bilirubin Total 0.8 mg/dL (0.2-1.3); Blood Urea Nitrogen 12 mg/dL (7-17); Calcium 9.9 mg/dL (8.4-10.2); Carbon Dioxide 21 mmol/L (22-32); Chloride 107 mmol/L (98-107); Creatine Kinase 66 U/L (30-135); Estimated Glomerular Filt Rate > 60 mL/min (>60); Globulin 3.5 g/dL (1.7-4.1); Glucose 108 mg/dL (70-100); HEMOLYSIS < 15 (0-50); Lipase 1458 U/L (23-300); Magnesium 1.9 mg/dL (1.6-2.3); Potassium 4.3 mmol/L (3.4-5.1); Sodium 138 mmol/L (137-145); Total Protein 8.2 g/dL (6.3-8.2)
[2024-06-08 17:32] LABS: NT-proBNP (BNP-Adult 18+) 422 pg/mL (<125); Troponin I < 0.012 ng/mL (0.01-0.034)
--- NOTE | 2024-06-08 18:39 | ED.GENADULT ---
HPI - General Adult General Chief complaint: Hypertension Stated complaint: HBP Time Seen by Provider: 06/08/24 18:11 Source: patient Mode of arrival: Family Vehicle History of Present Illness HPI narrative: Patient is a 53-year-old female who is here for evaluation of high blood pressure. She has a history of high blood pressure. Is on medications for blood pressure. Does not take her blood pressure at home regularly but when she does she states it is normally in the 130s to 140 systolic. She does have a slight headache but no chest pain. No shortness of breath. No vision changes for tingling in upper and lower extremities. She has taken her blood pressure medications today Related Data Home Medications Medication Instructions Recorded Confirmed albuterol sulfate 90 mcg/actuation inhalation 12/02/21 aerosol inhaler (ProAir HFA) amitriptyline 100 mg tablet 100 mg PO DAILY 12/02/21 12/02/21 duloxetine 60 mg capsule,delayed 60 mg PO DAILY 12/02/21 12/02/21 release lisinopril 20 mg tablet 20 mg PO DAILY 12/02/21 12/02/21 tolterodine 4 mg capsule,extended 4 mg PO DAILY 12/02/21 12/02/21 release 24 hr Previous Rx's Medication Instructions Recorded amlodipine 5 mg tablet 5 mg PO DAILY #30 tabs 12/02/21 Allergies Allergy/AdvReac Type Severity Reaction Status Date / Time Penicillins Allergy Mild RASH, N/V Verified 12/02/21 14:18 Sulfa (Sulfonamide Allergy Mild RASH, N/V Verified 12/02/21 14:18 Antibiotics) adhesive Allergy Unknown ALLERGIC Verified 12/02/21 14:18 TO TAPE Review of Systems Review of Systems ROS Unobtainable: All systems reviewed & are unremarkable except as noted in HPI and below Patient History Medical History Hypertension Surgical History History of third molar tooth extraction Status post surgery (01/01/15) Social History Smoking Status: Never smoker Smoking Status: Never smoker alcohol intake frequency: other Substance Use Type: does not use Exam Initial Vital Signs Initial Vital Signs: Vital Signs Temperature 97.9 F 06/08/24 16:41 Pulse Rate 93 H 06/08/24 16:41 Respiratory Rate 18 06/08/24 16:41 Blood Pressure 194/122 H 06/08/24 16:41 Pulse Oximetry 99 06/08/24 16:41 Oxygen Delivery Method Room Air 06/08/24 16:41 Const General: cooperative, comfortable and No ill appearing HENVT Head: normal to inspection and normocephalic Resp Effort & Inspection: normal respiratory effort Auscultation: clear to auscultation bilaterally Cardio Rate: regular rate Rhythm: regular rhythm Skin General: no rashes or lesions noted Neuro General: patient alert, patient awake, patient oriented x3 and moves all extremities Extrem General: No edema Course Orders Ordered: ED Orders 06/08/24 16:47 XR chest 1V Stat EKG-12 Lead Stat 06/08/24 17:02 Complete Blood Count AUTO DIFF Stat Comprehensive Metabolic Panel Stat Lipase Stat Magnesium Stat NT-proBNP (BNP-Adult 18+) Stat PTT Partial Thromboplastin Francesco Stat Prothrombin Time INR Stat Troponin & CK Cardiac Panel Stat Vital Signs Vital signs: Vital Signs - 8 hr 06/08/24 18:00 06/08/24 18:00 06/08/24 18:15 Pulse Rate 69 72 Respiratory Rate 13 16 Blood Pressure 171/96 H Pulse Oximetry 95 96 06/08/24 18:15 Pulse Rate Respiratory Rate Blood Pressure 171/97 H Pulse Oximetry Medical Decision Making Lab Data Lab results reviewed: Yes I reviewed the patient's lab results. 06/08/24 17:02 06/08/24 17:02 Labs: Lab Results 06/08/24 Range/Units 17:02 WBC 6.7 (4.5-11.0) X10^3/uL RBC 4.38 (4.0-5.2) X10^6/uL Hgb 13.8 (12.0-16.0) g/dL Hct 40.1 (36-46) % MCV 91.7 (80-100) fL MCH 31.6 (26-34) PG MCHC 34.5 (30-36) % RDW 13.5 (11.6-14.8) % Plt Count 260 (150-400) X10^3/uL Neut % (Auto) 58.9 (50-75) % Lymph % (Auto) 19.3 L (25-40) % [place] % (Auto) 9.5 (3-14) % Eos % (Auto) 11.6 H (2-4) % Baso % (Auto) 0.7 (0-2) % Neut # (Auto) 4000 (5056-6064) /uL Lymph # (Auto) 1300 (9508-3281) /uL [place] # (Auto) 600 (0-900) /uL Eos # (Auto) 800 H (0-450) /uL Baso # (Auto) 0 (0-100) /uL PT 13.2 H (9.4-12.5) SECONDS INR 1.2 (0.9-1.3) APTT 34 (25.1-36.5) SECONDS Sodium 138 (137-145) mmol/L Potassium 4.3 (3.4-5.1) mmol/L Chloride 107 (98-107) mmol/L Carbon Dioxide 21 L (22-32) mmol/L BUN 12 (7-17) mg/dL Creatinine 0.69 (0.52-1.04) mg/dL Estimated GFR > 60 (>60) mL/min BUN/Creatinine Ratio 17.4 (6-22) Glucose 108 H (70-100) mg/dL Calcium 9.9 (8.4-10.2) mg/dL Magnesium 1.9 (1.6-2.3) mg/dL Total Bilirubin 0.8 (0.2-1.3) mg/dL AST 28 (14-36) IU/L ALT 21 (<35) IU/L Alkaline Phosphatase 91 (38-126) U/L Total Creatine Kinase 66 (30-135) U/L Troponin I < 0.012 (0.01-0.034) ng/mL NT-Pro-B Natriuret Pep 422 H (<125) pg/mL Total Protein 8.2 (6.3-8.2) g/dL Albumin 4.7 (3.5-5.0) g/dL Globulin 3.5 (1.7-4.1) g/dL Albumin/Globulin Ratio 1.3 (1.0-2.8) Lipase 1458 H (23-300) U/L Imaging Data Chest x-ray: Radiologist's Impression: PROCEDURE: XR CHEST 1V INDICATIONS: chest pain TECHNIQUE: One view of the chest was acquired. COMPARISON: [facility], XR CHEST 1V, 05/03/2023, 17:50. FINDINGS: Surgical changes and devices: None. Lungs and pleura: Lungs are clear. No pleural effusions or pneumothorax. Mediastinum: Mediastinal contours appear normal. Heart size is normal. Bones and chest wall: No suspicious bony lesions. Overlying soft tissues appear unremarkable. IMPRESSION: No acute cardiopulmonary abnormality is seen. ECG Data Attestation: I personally reviewed and interpreted this ECG as follows: Interpretation: Sinus rhythm Ventricular rate is 79 Normal axis Normal QRS Normal QTC No ST T wave changes MDM Narrative Medical decision making narrative: Low suspicion for ACS, TIA, CVA, CHF, ARF, patient was not in AFib, does have history of HTN and has been taking her meds. Had a discussion with the patient regarding her HBP, no indication for emergent lowering of the BP, will have patient talk with PCP about her HTN to discuss any changes to her meds. She was given return precautions. She expressed understanding and agreement. Discharge Plan Departure Patient Disposition: Home Clinical Impression: Hypertension Instructions: DI for High Blood Pressure Activity Restrictions/Additional Instructions: Continue to take all of your medications as directed. Take your blood pressure at home like we discussed. 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 Return to the emergency department for new or worsening symptoms. Prescriptions: No Action tolterodine 4 mg capsule,extended release 24hr 4 mg PO DAILY lisinopril 20 mg tablet 20 mg PO DAILY albuterol sulfate [ProAir HFA] 90 mcg/actuation HFA aerosol inhaler INHALATION amitriptyline 100 mg tablet 100 mg PO DAILY duloxetine 60 mg capsule,delayed release(DR/EC) 60 mg PO DAILY amlodipine 5 mg tablet 5 mg PO DAILY Qty: 30 0RF Referrals: ProviderTeresa [Primary Care Provider] - Stand Alone Forms: Patient Portal/API
== END 2024-06-08 18:52 | disposition home or self-care (01) ==
PROVIDERS: Emergency Medicine; Emergency Provider Emergency Medicine
DX: I10 Essential (primary) hypertension (principal); R07.9 Chest pain, unspecified
CPT/HCPCS: 36415; 71045; 80053; 82550; 83690; 83735; 83880; 84484; 85025; 85610; 85730; 93005; 93010; 99283; 99284